=== PATIENT | female | born 1995 | race Two or more races ===

== ENCOUNTER 2018-11-23 14:44 | Inpatient (IN) | payer MEDICAID ==
[~2018-11-23] VITALS: Ht 154.9 cm; Wt 58.5 kg
[2018-11-23] MEDS ORDERED: NKM (15:03)
[2018-11-23 15:19] VITALS: BP 112/67
--- NOTE | 2018-11-23 15:30 | NUR ---
ED Nurse Note: zuhair booth done blood and urine sent.
[2018-11-23 15:56] LABS: APPEARANCE,URINE CLEAR; BILIRUBIN, URINE NEGATIVE (NEGATIVE); COLOR,URINE PALE YELLOW; GLUCOSE, URINE (UA) NEGATIVE (NEGATIVE); KETONES,URINE 1+ (NEGATIVE); LEUKOCYTE ESTERASE ,URINE 3+ (NEGATIVE); NITRITE,URINE POSITIVE (NEGATIVE); PH,URINE 5 (4.5-8.0); PROTEIN,URINE 2+ (NEGATIVE); UROBILINOGEN,URINE NORMAL MG/DL (0.0-1.0)
[2018-11-23 16:03] LABS: HEMATOCRIT 34.4 % (37.0-47.0); HEMOGLOBIN 12.1 G/DL (12.0-16.0); MEAN CORPUSCULAR VOLUME 91 FL (80-99); PLATELET COUNT 320 K/UL (150-450); RED BLOOD COUNT 3.79 M/UL (4.20-5.40); RED CELL DISTRIBUTION WIDTH 11.1 % (11.6-14.8); WHITE BLOOD COUNT 15.7 K/UL (4.8-10.8)
[2018-11-23 16:07] LABS: ANION GAP 8 mmol/L (5-15); BLOOD UREA NITROGEN 11 mg/dL (7-18); CALCIUM 9.4 MG/DL (8.5-10.1); CARBON DIOXIDE 26 MMOL/L (21-32); CHLORIDE 101 MMOL/L (98-107); CREATININE 0.8 MG/DL (0.55-1.30); POTASSIUM 3.6 MMOL/L (3.5-5.1); SODIUM 135 MMOL/L (136-145)
[2018-11-23 16:12] LABS: ALANINE AMINOTRANSFERASE 16 U/L (12-78); ALBUMIN 3.8 G/DL (3.4-5.0); ALKALINE PHOSPHATASE 64 U/L (46-116); ASPARTATE AMINO TRANSFERASE 15 U/L (15-37); BILIRUBIN,TOTAL 0.2 MG/DL (0.2-1.0)
[2018-11-23] MEDS ORDERED: Isovue-300 100ml vial INJ PRN (16:15)
--- NOTE | 2018-11-23 16:40 | NUR ---
ED Nurse Note: med well tolerated will monitor.
--- NOTE | 2018-11-23 16:51 | NUR ---
ED Nurse Note: pt back from imaging
--- NOTE | 2018-11-23 17:10 | Diagnostic Imaging Report ---
Indication: Abdominal pain Technique: Continuous helical transaxial imaging of the abdomen and pelvis was obtained from the lung bases to the pubic symphysis during intravenous contrast administration. Coronal 2-D reformats were also obtained. Study obtained in a Siemens sensation [address] Automatic Exposure Control was utilized. Total Dose length Product (DLP): 808.[address] Dose Index Volume (CTDIvol): 14.79 mGy Comparison: None Findings: Although there is no hydronephrosis per se there is the suggestion of mild enhancement of the kimble of both ureters especially on the left. In addition, there is enhancement and mild thickening of the wall the urinary bladder. Findings consistent with cystitis and may reflect acute or chronic urinary tract infection (pyelitis/ureteritis). The kidneys enhance normally bilaterally without evidence of bacterial nephritis or abscess. The lung bases are clear. The liver and spleen, pancreas, kidneys appear normal. There is no free fluid. The appendix is normal. Bowel gas pattern is nonobstructive. There is a small amount of free fluid within the pelvis. Uterus and both ovaries are noted. Impression: Suspect cystitis and pyelitis with possible pyelonephritis. Correlate clinically, urinalysis etc. No abscess. Negative exam otherwise. The CT scanner at [facility] is accredited by the [place] [employer] and the scans are performed using dose optimization techniques as appropriate to a performed exam including Automatic Exposure control.
[2018-11-23] MEDS ORDERED: Lidocaine 1% MPF 10mg/ml 5ml INJ ONE (17:15)
[2018-11-23] MEDS ORDERED: Ketorolac 30mg Inj IV ONE (17:30)
--- NOTE | 2018-11-23 17:50 | Emergency Room Report ---
History of Present Illness General Chief Complaint: Fever Source: Patient (Genevieve Szymanski) Present Illness HPI 23-year-old female with no significant past medical history here complaining of 2 days of bilateral flank pain, urinary frequency, and fever. Patient also reports chills as well as generalized body aches. Denies any URI symptoms. Denies diarrhea, chest pain, palpitation, shortness of breath, hematuria. Patient reports that her last menstrual. Was 2 weeks ago and has regular menses. Patient has not taken medication other than Tylenol for her symptoms. Patient is rating the pain 5 out of 10 in bilateral flank radiating to the pubic area. Denies nausea vomiting. Denies recent travel and no other associated symptoms. Denies vaginal discharge. (Genevieve Szymanski) Allergies: Coded Allergies: No Known Allergies (Unverified , 11/23/18) Patient History Past Medical History: see triage record Past Surgical History: unable to obtain Pertinent Family History: none Last Menstrual Period: october Now: No Immunizations: UTD Reviewed Nursing Documentation: PMH: Agreed; PSxH: Agreed (Genevieve Szymanski) Nursing Documentation-PMH Past Medical History: No Stated History (Genevieve Szymanski) Review of Systems All Other Systems: negative except mentioned in HPI (Genevieve Szymanski) Physical Exam Vital Signs Date Time Temp Pulse Resp B/P (MAP) Pulse Ox O2 Delivery O2 Flow Rate FiO2 11/23/18 14:58 102.2 128 16 112/67 (82) 94 Room Air Sp02 EP Interpretation: abnormal - Fever 102 General Appearance: alert, GCS 15, non-toxic, mild distress Head: normocephalic, atraumatic Eyes: bilateral eye normal inspection, bilateral eye PERRL ENT: hearing grossly normal, normal pharynx, no angioedema, normal voice Neck: full range of motion, supple/symm/no masses Respiratory: chest non-tender, lungs clear, normal breath sounds, speaking full sentences Cardiovascular #1: regular rate, rhythm, no edema Gastrointestinal: normal bowel sounds, non tender, soft, no mass, no organomegaly, no peritonitis, no bruit, no guarding, no pulsatile mass, other - Negative McBurney's and Rovsing's Genitourinary: no CVA tenderness Musculoskeletal: back normal, gait/station normal, normal range of motion, non- tender, calf tenderness Neurologic: alert, oriented x3, responsive, motor strength/tone normal, sensory intact, speech normal Psychiatric: judgement/insight normal, memory normal, mood/affect normal, no suicidal/homicidal ideation Skin: no rash Lymphatic: no adenopathy (Genevieve Szymanski) Medical Decision Making PA Attestation All my diagnosis and treatment plans were reviewed ad discussed with my supervising physician Dr. Dietrich (Genevieve Szymanski) Diagnostic Impression: Primary Impression: Pyelonephritis ER Course 23-year-old female with no significant past medical history here complaining of 2 days of bilateral flank pain, urinary frequency, and fever. Patient also reports chills as well as generalized body aches. Denies any URI symptoms. Denies diarrhea, chest pain, palpitation, shortness of breath, hematuria. Patient reports that her last menstrual. Was 2 weeks ago and has regular menses. Patient has not taken medication other than Tylenol for her symptoms. Patient is rating the pain 5 out of 10 in bilateral flank radiating to the pubic area. Denies nausea vomiting. Denies recent travel and no other associated symptoms. Denies vaginal discharge. Ddx considered but are not limited to: UTI, pyelonephritis, urinary incontinence , prolapsed bladder Vital signs: are WNL, pt. is febrile H&PE are most consistent with: Pyelonephritis ORDERS: UA, CBC, CMP, PT, PTT, type and screen ED INTERVENTIONS: Rocephin 1 g IV, NS bolus Patient was admitted with diagnosis of pyelonephritis to Dr. Oscar under supervision of : Kaur pt stable at time of admission White blood count of 15,000, leukocytes and white blood cells in urine noted. (Genevieve Szymanski) ER Course I reviewed case with PA and reviewed findings including labs, imaging results. I agree that patient will require further evaluation and admission. Care is endorsed to admitting physician Dr Oscar (Timothy Dietrich MD) EKG Diagnostic Results Rate: tachycardiac ST Segments: no acute changes Other Impression no acute ST changes (Genevieve Szymanski) Chest X-Ray Diagnostic Results Chest X-Ray Diagnostic Results : Chest X-Ray Ordered: Yes # of Views/Limited/Complete: 1 View Indication: Other EP Interpretation: Yes PA Xray: Interpretation reviewed, by supervising MD, and agrees with findings. Interpretation: no consolidation, no effusion, no pneumothorax Impression: No acute disease Electronically Signed by: Genevieve Gr PA-C (Genevieve Szymanski) CT/MRI/US Diagnostic Results CT/MRI/US Diagnostic Results : Imaging Test Ordered: CT abdomen pelvis with contrast Impression Pyelonephritis (Genevieve Szymanski) Last Vital Signs Date Time Temp Pulse Resp B/P (MAP) Pulse Ox O2 Delivery O2 Flow Rate FiO2 11/23/18 16:50 100.4 11/23/18 16:32 103 16 Room Air 11/23/18 15:19 112/67 94 (Genevieve Szymanski) Status: improved (Timothy Dietrich MD) Disposition: ADMITTED INPATIENT Condition: Serious Referrals: NOT CHOSEN IPA/,REFERRING (PCP) Genevieve Szymanski Nov 23, 2018 17:50 Timothy Dietrich MD Nov 23, 2018 18:47
--- NOTE | 2018-11-23 18:01 | NUR ---
ED Nurse Note: Zulma pt.
--- NOTE | 2018-11-23 18:19 | NUR ---
ED Nurse Note: pt moved to bed 2 per erpa verbal request.
[2018-11-23 18:21] VITALS: BP 116/70
[2018-11-23 18:33] LABS: INR 0.9 (0.9-1.1)
--- NOTE | 2018-11-23 19:02 | Infectious Diseases Prog Note ---
Assessment/Plan Problems: (1) Acute pyelonephritis Assessment & Plan: will send blood culture and start cefepime empirically , pending urine culture (2) Sepsis Assessment & Plan: due to the above with fever and leukocytosis, will send blood culture x2 and start cefepime empirically (3) Fever Assessment & Plan: due to the above, continue antibiotics and tylenol as needed (4) Abdominal pain Assessment & Plan: due to the above, continue pain management as per primary Subjective Allergies: Coded Allergies: No Known Allergies (Unverified , 11/23/18) Objective Vital Signs Last 24 Hour Vital Signs Date Time Temp Pulse Resp B/P (MAP) Pulse Ox O2 Delivery O2 Flow Rate FiO2 11/23/18 18:21 101.4 86 20 116/70 100 Room Air 11/23/18 18:00 101.4 11/23/18 16:50 100.4 11/23/18 16:32 103 16 Room Air 11/23/18 15:19 102.2 16 112/67 94 Room Air 11/23/18 14:58 102.2 128 16 112/67 (82) 94 Room Air Height (Feet): 5 Height (Inches): 1.00 Weight (Pounds): 129 Laboratory Tests Test 11/23/18 15:10 11/23/18 15:30 11/23/18 18:09 Urine Color Pale yellow Urine Appearance Clear Urine pH 5 (4.5-8.0) Urine Specific [place] 1.015 (1.005-1.035) Urine Protein 2+ (NEGATIVE) H Urine Glucose (UA) Negative (NEGATIVE) Urine Ketones 1+ (NEGATIVE) H Urine Blood 4+ (NEGATIVE) H Urine Nitrite Positive (NEGATIVE) H Urine Bilirubin Negative (NEGATIVE) Urine Urobilinogen Normal MG/DL (0.0-1.0) Urine Leukocyte Esterase 3+ (NEGATIVE) H Urine RBC 5-10 /HPF (0 - 2) H Urine WBC 10-15 /HPF (0 - 2) H Urine Squamous Epithelial Cells Few /LPF (NONE/OCC) Urine Bacteria Moderate /HPF (NONE) H Urine HCG, Qualitative Negative (NEGATIVE) White Blood Count 15.7 K/UL (4.8-10.8) H Red Blood Count 3.79 M/UL (4.20-5.40) L Hemoglobin 12.1 G/DL (12.0-16.0) Hematocrit 34.4 % (37.0-47.0) L Mean Corpuscular Volume 91 FL (80-99) Mean Corpuscular Hemoglobin 31.9 PG (27.0-31.0) H Mean Corpuscular Hemoglobin Concent 35.1 G/DL (32.0-36.0) Red Cell Distribution Width 11.1 % (11.6-14.8) L Platelet Count 320 K/UL (150-450) Mean Platelet Volume 5.7 FL (6.5-10.1) L Neutrophils (%) (Auto) % (45.0-75.0) Lymphocytes (%) (Auto) % (20.0-45.0) Monocytes (%) (Auto) % (1.0-10.0) Eosinophils (%) (Auto) % (0.0-3.0) Basophils (%) (Auto) % (0.0-2.0) Differential Total Cells Counted 100 Neutrophils % (Manual) 87 % (45-75) H Lymphocytes % (Manual) 8 % (20-45) L Monocytes % (Manual) 4 % (1-10) Eosinophils % (Manual) 0 % (0-3) Basophils % (Manual) 0 % (0-2) Band Neutrophils 1 % (0-8) Platelet Estimate Adequate Platelet Morphology Normal Red Blood Cell Morphology Normal Sodium Level 135 MMOL/L (136-145) L Potassium Level 3.6 MMOL/L (3.5-5.1) Chloride Level 101 MMOL/L (98-107) Carbon Dioxide Level 26 MMOL/L (21-32) Anion Gap 8 mmol/L (5-15) Blood Urea Nitrogen 11 mg/dL (7-18) Creatinine 0.8 MG/DL (0.55-1.30) Estimat Glomerular Filtration Rate > 60 mL/min (>60) Glucose Level 126 MG/DL (74-106) H Calcium Level 9.4 MG/DL (8.5-10.1) Total Bilirubin 0.2 MG/DL (0.2-1.0) Aspartate Amino Transf (AST/SGOT) 15 U/L (15-37) Alanine Aminotransferase (ALT/SGPT) 16 U/L (12-78) Alkaline Phosphatase 64 U/L (46-116) Total Protein 7.7 G/DL (6.4-8.2) Albumin 3.8 G/DL (3.4-5.0) Globulin 3.9 g/dL Albumin/Globulin Ratio 1.0 (1.0-2.7) Prothrombin Time 10.0 SEC (9.30-11.50) Prothromb Time International Ratio 0.9 (0.9-1.1) Activated Partial Thromboplast Time 30 SEC (23-33) Current Medications Medications (Trade) Dose Ordered Sig/Mackenzie Route PRN Reason Start Time Stop Time Status Last Admin Dose Admin Iopamidol (Isovue-300 100ml) 100 ml NOW PRN INJ Radiology Procedure 11/23/18 16:15 11/25/18 16:14 Sodium Chloride 500 ml @ 999 mls/hr Q31M ONCE IV 11/23/18 19:00 11/23/18 19:30 Sodium Chloride 1,000 ml @ 999 mls/hr Q1H1M ONCE IV 11/23/18 19:00 11/23/18 20:00 11/23/18 18:58 Jordan Aggarwal M.D. Nov 23, 2018 19:02
[2018-11-23 19:30] VITALS: BP 110/72
--- NOTE | 2018-11-23 19:30 | NUR ---
ER Nurse Note: Report given to LYNNETTE Guadarrama in [place] for continuity of care. Pt a&ox4, VSS, RA, no signs of distress. Pt ambulatory. IV LT AC; patent and infusing NS. Left with all belongings.
--- NOTE | 2018-11-23 20:20 | NUR ---
NURSE NOTES: Patient is awake, alert, and verbally responsive. Able to make needs known. IV site is noted. Skin is warm and dry to touch. Abdomen is soft, slight pain. Lower back pain noted. Dr. Aggarwal made rounds, is aware. Kept clean and comfortable. Provided safe environment. Oriented patient to the room, vital signs, and notifications. Call light is at bedside. WIll continue plan of care.
--- NOTE | 2018-11-23 20:30 | NUR ---
NURSE NOTES: Called Dr. Oscar for admission orders. awaiting call back.
[2018-11-23] MEDS: Cefepime HCl 2 GM in D5W 55 ML IVPB SCH (22:15)
[2018-11-23] MEDS ORDERED: Ketorolac 30mg Inj IV PRN (22:30)
[2018-11-23] MEDS ORDERED: Morphine Sulfate 4mg/ml Inj (IV USE ONLY) IVP PRN (22:30)
[2018-11-23] MEDS: D5NS 1,000 ML IV SCH (22:52)
--- NOTE | 2018-11-23 23:15 | Consultation ---
DATE OF CONSULTATION: 11/23/2018 UROLOGY CONSULTATION CONSULTING PHYSICIAN: Hi Matamoros M.D. ATTENDING/REFERRING PHYSICIAN: Anaya Oscar M.D. CHIEF COMPLAINT/HISTORY OF PRESENT ILLNESS: I was asked by Dr. Oscar to evaluate this pleasant 23-year-old regarding a history of urinary tract infection and left-sided pyelonephritis secondary to the same. Briefly, the patient has no significant medical history or issue. She presents to the hospital with history of two days of abdominal pain associated with urinary frequency. She does not have any history of high-grade fevers or chills. She did notice that her urine was coming out slowly and had some discomfort with urination. Given the above, she was brought here. Workup revealed evidence of urinary tract infection. Given the above, I was asked to evaluate the patient. PAST MEDICAL HISTORY: Essentially unremarkable. PAST SURGICAL HISTORY: None. MEDICATIONS: Please see the chart for current medications administration details. Briefly, the patient has been started on cefepime for antibiotic coverage. ALLERGIES: No known drug allergies. SOCIAL HISTORY: Unremarkable for tobacco, alcohol or drug use. FAMILY HISTORY: Noncontributory. REVIEW OF SYSTEMS: A 14-system review of systems is essentially unremarkable outside of what is described above. PHYSICAL EXAMINATION: GENERAL: The patient is a young female, awake, alert, and oriented x4, very pleasant, in no obvious distress. HEENT: NC/AT. EOMI. NECK: Supple. Oropharynx clear. CHEST: Within normal limits. ABDOMEN: Soft. Mild epigastric tenderness. No rebound or guarding. EXTREMITIES: Warm and well perfused. No cyanosis, clubbing, or edema. BACK: Left CVA tenderness to percussion. NEUROLOGIC: Grossly nonfocal. LABORATORY AND DIAGNOSTIC DATA: White blood cell count 15.7, hematocrit 34.4, and platelets 320,000. PT, PTT, and INR within normal limits. Sodium 135, potassium 3.6, chloride 101, bicarbonate 26, BUN 11, creatinine 0.8, glucose 126, calcium 9.4. LFTs within normal limits. Urinalysis - specific gravity 1.015, pH 5.0. Dip test is notable for 2+ protein, 1+ , 4+ blood, positive nitrites, and 3+ leukocyte esterase. Microanalysis - 5-10 red and 10-15 white blood cells per high-power field and moderate bacteria seen. Urine is negative. Urine culture is pending. Diagnostic imaging - CT scan of the abdomen and pelvis reveals cystitis and pyelitis with possible pyelonephritis. There is no evidence of abscess and exam is otherwise negative. ASSESSMENT AND PLAN: In summary, the patient is a 23-year-old female with history of urinary tract infection and left pyelonephritis. Physical exam reveals left CVA tenderness and epigastric tenderness. Laboratory data is notable for an elevated white blood cell count and evidence of urinary tract infection. Urine culture is pending. Diagnostic imaging with CT scan does not reveal anything outside of the above. I discussed these findings today with the patient at bedside. I agree that cefepime is good antibiotic coverage to initiate empirically for the same. We will adjust antibiotic as urine culture results warrant. I will leave this at the discretion of Dr. Aggarawl. Once the patient's white blood cell count has returned to normal and her symptoms are better controlled, she can be discharged home on oral antibiotics to complete 10 to 14 days of total therapy. Thank you for allowing me to participate in the care of this nice lady. Please do not hesitate to contact me for any questions that you may further have regarding her care. I will see her with you as needed. Hi Matamoros M.D. DR: KATHLEEN JOB#: [id number] CC:
[2018-11-23 23:51] VITALS: BP 94/60
[2018-11-24 04:00] VITALS: BP 112/66
[2018-11-24 07:14] LABS: HEMATOCRIT 36.6 % (37.0-47.0); HEMOGLOBIN 12.4 G/DL (12.0-16.0); MEAN CORPUSCULAR VOLUME 94 FL (80-99); PLATELET COUNT 271 K/UL (150-450); RED BLOOD COUNT 3.88 M/UL (4.20-5.40); RED CELL DISTRIBUTION WIDTH 11.9 % (11.6-14.8); WHITE BLOOD COUNT 20.2 K/UL (4.8-10.8)
--- NOTE | 2018-11-24 07:14 | NUR ---
HAND-OFF: Report given to Brent Hess.
[2018-11-24 07:28] LABS: ALANINE AMINOTRANSFERASE 18 U/L (12-78); ALBUMIN 3.2 G/DL (3.4-5.0); ALBUMIN/GLOBULIN RATIO 0.8 (1.0-2.7); ALKALINE PHOSPHATASE 56 U/L (46-116); ANION GAP 9 mmol/L (5-15); ASPARTATE AMINO TRANSFERASE 21 U/L (15-37); BILIRUBIN,TOTAL 0.3 MG/DL (0.2-1.0); BLOOD UREA NITROGEN 7 mg/dL (7-18); CALCIUM 8.8 MG/DL (8.5-10.1); CARBON DIOXIDE 23 MMOL/L (21-32); CHLORIDE 105 MMOL/L (98-107); CHOLESTEROL 114 MG/DL (< 200); CREATININE 0.7 MG/DL (0.55-1.30); HDL CHOLESTEROL 56 MG/DL (40-60); POTASSIUM 3.7 MMOL/L (3.5-5.1); SODIUM 137 MMOL/L (136-145); TRIGLYCERIDES 93 MG/DL (30-150)
[2018-11-24 08:00] VITALS: BP 105/59
--- NOTE | 2018-11-24 08:21 | NUR ---
pt in bed awake, boyfriend is at bedside. Pt is NPO and will be having US ab today. Pt AOx4. Call light within reach. Bed is locked and in lowest position. Will continue to follow plan of care.
--- NOTE | 2018-11-24 09:07 | Diagnostic Imaging Report ---
Indication: Chest pain and fever Technique: One view of the chest Comparison: none Findings: Lungs and pleural spaces are clear. Heart size is normal. Impression: No acute process
[2018-11-24] MEDS: Cefepime HCl 2 GM in D5W 55 ML IVPB SCH ×2 (09:08→20:19)
[2018-11-24] MEDS: Enoxaparin 40mg Inj SUBQ SCH (09:09)
--- NOTE | 2018-11-24 10:23 | NUR ---
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 T: 102.2F SI: Pyelonephritis VS: BP: 112/67 HR: 128 RR 16 02 Sat 94% (RA) T: 102.2 NT: Hct 34.4 WBC 15.7 RBC 3.79 UR Protein 2+ UR Ketones 1+ UR Nitrite Positive UR RBC 5-10 UR WBC 10-15 UC Bacteria Moderate Glucose Random 126 CT Abdomen pelvis w/ contrast: Suspect cystitis and pyelitis with possible pyelonephritis. Correlate clinically, urinalysis etc. No abscess. Negative exam otherwise. CXR: negative IS: Tylenol 650mg Oral Isovue-300 Inj Rocephin 1gm IM Lidocaine 3.6ml INJ NS 500ml IV Toradol 30mg IV Admitted to [facility] status DCP: Pending Hospital Stay
--- NOTE | 2018-11-24 11:27 | Infectious Diseases Prog Note ---
Assessment/Plan Problems: (1) Acute pyelonephritis Assessment & Plan: await blood culture and continue cefepime empirically , pending urine culture (2) Sepsis Assessment & Plan: due to the above with fever and leukocytosis, monitor blood culture x2 and continue cefepime empirically (3) Fever Assessment & Plan: due to the above, continue antibiotics and tylenol as needed (4) Abdominal pain Assessment & Plan: due to the above, continue pain management as per primary Subjective Constitutional: Reports: fever HEENT: Reports: no symptoms Respiratory: Reports: no symptoms Breasts: Reports: no symptoms Cardiovascular: Reports: no symptoms Gastrointestinal/Abdominal: Reports: bloating Genitourinary: Reports: no symptoms Neurologic: Reports: no symptoms Psychiatric: Reports: no symptoms Skin: Reports: no symptoms Endocrine: Reports: no symptoms Hematologic: Reports: no symptoms Musculoskeletal: Reports: no symptoms Allergies: Coded Allergies: No Known Allergies (Unverified , 11/23/18) Objective Vital Signs Last 24 Hour Vital Signs Date Time Temp Pulse Resp B/P (MAP) Pulse Ox O2 Delivery O2 Flow Rate FiO2 11/24/18 08:00 98.6 72 17 105/59 (74) 97 11/24/18 05:09 101.2 11/24/18 04:00 102.0 109 16 112/66 (81) 98 11/23/18 23:51 96.8 100 18 94/60 (71) 96 11/23/18 22:53 Room Air 11/23/18 19:35 99.1 90 16 110/72 100 Room Air 11/23/18 19:30 99.1 90 16 110/72 100 Room Air 11/23/18 18:21 101.4 86 20 116/70 100 Room Air 11/23/18 18:00 101.4 11/23/18 16:50 100.4 11/23/18 16:32 103 16 Room Air 11/23/18 15:19 102.2 16 112/67 94 Room Air 11/23/18 14:58 102.2 128 16 112/67 (82) 94 Room Air Height (Feet): 5 Height (Inches): 1.00 Weight (Pounds): 129 General Appearance: WD/WN, no acute distress HEENT: normocephalic, atraumatic, anicteric, mucous membranes moist, PERRL Respiratory/Chest: chest wall non-tender, lungs clear, normal breath sounds, no respiratory distress, no accessory muscle use Cardiovascular: normal peripheral pulses, normal rate, regular rhythm, no gallop/murmur, no JVD Abdomen: normal bowel sounds, no organomegaly, non distended, no mass, no scars , tender Extremities: no cyanosis, no clubbing Skin: no rash, no lesions, no ulcers Neurologic/Psychiatric: glory hole tender II-XII grossly normal, no motor/sensory deficits, alert, oriented x 3, responsive Lymphatic: no neck adenopathy, no groin adenopathy Musculoskeletal: normal muscle bulk, no effusion Microbiology Date/Time Source Procedure Growth Status 11/23/18 15:10 Urine,Clean Catch Urine Culture - Preliminary Gram Negative Ramiro Resulted Laboratory Tests Test 11/23/18 15:10 11/23/18 15:30 11/23/18 18:09 11/24/18 06:24 Urine Color Pale yellow Urine Appearance Clear Urine pH 5 (4.5-8.0) Urine Specific [place] 1.015 (1.005-1.035) Urine Protein 2+ (NEGATIVE) H Urine Glucose (UA) Negative (NEGATIVE) Urine Ketones 1+ (NEGATIVE) H Urine Blood 4+ (NEGATIVE) H Urine Nitrite Positive (NEGATIVE) H Urine Bilirubin Negative (NEGATIVE) Urine Urobilinogen Normal MG/DL (0.0-1.0) Urine Leukocyte Esterase 3+ (NEGATIVE) H Urine RBC 5-10 /HPF (0 - 2) H Urine WBC 10-15 /HPF (0 - 2) H Urine Squamous Epithelial Cells Few /LPF (NONE/OCC) Urine Bacteria Moderate /HPF (NONE) H Urine HCG, Qualitative Negative (NEGATIVE) White Blood Count 15.7 K/UL (4.8-10.8) H 20.2 K/UL (4.8-10.8) H Red Blood Count 3.79 M/UL (4.20-5.40) L 3.88 M/UL (4.20-5.40) L Hemoglobin 12.1 G/DL (12.0-16.0) 12.4 G/DL (12.0-16.0) Hematocrit 34.4 % (37.0-47.0) L 36.6 % (37.0-47.0) L Mean Corpuscular Volume 91 FL (80-99) 94 FL (80-99) Mean Corpuscular Hemoglobin 31.9 PG (27.0-31.0) H 32.0 PG (27.0-31.0) H Mean Corpuscular Hemoglobin Concent 35.1 G/DL (32.0-36.0) 33.8 G/DL (32.0-36.0) Red Cell Distribution Width 11.1 % (11.6-14.8) L 11.9 % (11.6-14.8) Platelet Count 320 K/UL (150-450) 271 K/UL (150-450) Mean Platelet Volume 5.7 FL (6.5-10.1) L 5.8 FL (6.5-10.1) L Neutrophils (%) (Auto) % (45.0-75.0) % (45.0-75.0) Lymphocytes (%) (Auto) % (20.0-45.0) % (20.0-45.0) Monocytes (%) (Auto) % (1.0-10.0) % (1.0-10.0) Eosinophils (%) (Auto) % (0.0-3.0) % (0.0-3.0) Basophils (%) (Auto) % (0.0-2.0) % (0.0-2.0) Differential Total Cells Counted 100 100 Neutrophils % (Manual) 87 % (45-75) H 84 % (45-75) H Lymphocytes % (Manual) 8 % (20-45) L 9 % (20-45) L Monocytes % (Manual) 4 % (1-10) 6 % (1-10) Eosinophils % (Manual) 0 % (0-3) 0 % (0-3) Basophils % (Manual) 0 % (0-2) 0 % (0-2) Band Neutrophils 1 % (0-8) 1 % (0-8) Platelet Estimate Adequate Adequate Platelet Morphology Normal Normal Red Blood Cell Morphology Normal Normal Sodium Level 135 MMOL/L (136-145) L 137 MMOL/L (136-145) Potassium Level 3.6 MMOL/L (3.5-5.1) 3.7 MMOL/L (3.5-5.1) Chloride Level 101 MMOL/L (98-107) 105 MMOL/L (98-107) Carbon Dioxide Level 26 MMOL/L (21-32) 23 MMOL/L (21-32) Anion Gap 8 mmol/L (5-15) 9 mmol/L (5-15) Blood Urea Nitrogen 11 mg/dL (7-18) 7 mg/dL (7-18) Creatinine 0.8 MG/DL (0.55-1.30) 0.7 MG/DL (0.55-1.30) Estimat Glomerular Filtration Rate > 60 mL/min (>60) > 60 mL/min (>60) Glucose Level 126 MG/DL (74-106) H 121 MG/DL (74-106) H Calcium Level 9.4 MG/DL (8.5-10.1) 8.8 MG/DL (8.5-10.1) Total Bilirubin 0.2 MG/DL (0.2-1.0) 0.3 MG/DL (0.2-1.0) Aspartate Amino Transf (AST/SGOT) 15 U/L (15-37) 21 U/L (15-37) Alanine Aminotransferase (ALT/SGPT) 16 U/L (12-78) 18 U/L (12-78) Alkaline Phosphatase 64 U/L (46-116) 56 U/L (46-116) Total Protein 7.7 G/DL (6.4-8.2) 7.3 G/DL (6.4-8.2) Albumin 3.8 G/DL (3.4-5.0) 3.2 G/DL (3.4-5.0) L Globulin 3.9 g/dL 4.1 g/dL Albumin/Globulin Ratio 1.0 (1.0-2.7) 0.8 (1.0-2.7) L Prothrombin Time 10.0 SEC (9.30-11.50) Prothromb Time International Ratio 0.9 (0.9-1.1) Activated Partial Thromboplast Time 30 SEC (23-33) Hemoglobin A1c 5.5 % (4.3-6.0) Triglycerides Level 93 MG/DL (30-150) Cholesterol Level 114 MG/DL (< 200) LDL Cholesterol 47 mg/dL (<100) HDL Cholesterol 56 MG/DL (40-60) Cholesterol/HDL Ratio 2.0 (3.3-4.4) L Thyroid Stimulating Hormone (TSH) 0.713 uiU/mL (0.358-3.740) Current Medications Medications (Trade) Dose Ordered Sig/Mackenzie Route PRN Reason Start Time Stop Time Status Last Admin Dose Admin Acetaminophen (Tylenol) 650 mg Q4H PRN ORAL Mild Pain/Temp > 100.5 11/23/18 22:30 12/23/18 22:29 11/24/18 04:39 Cefepime HCl 2 gm/ Dextrose 55 ml @ 110 mls/hr EVERY 12 HOURS IVPB 11/23/18 21:00 11/30/18 20:59 11/24/18 09:08 Dextrose/Sodium Chloride 1,000 ml @ 70 mls/hr [id number] IV 11/23/18 22:30 12/23/18 22:29 11/23/18 22:52 Enoxaparin Sodium (Lovenox) 40 mg DAILY SUBQ 11/24/18 09:00 12/24/18 08:59 11/24/18 09:09 Famotidine (Pepcid I.v.) 20 mg BID IVP 11/23/18 23:00 12/23/18 22:59 11/24/18 09:08 Iopamidol (Isovue-300 100ml) 100 ml NOW PRN INJ Radiology Procedure 11/23/18 16:15 11/25/18 16:14 Ketorolac Tromethamine (Toradol 30mg) 30 mg Q12HR PRN IV Moderate Pain (Pain Scale 4-6) 11/23/18 22:30 11/28/18 22:29 Morphine Sulfate (Morphine Sulfate) 3 mg Q4H PRN IVP Severe Pain (Pain Scale 7-10) 11/23/18 22:30 11/30/18 22:29 Jordan Aggarwal M.D. Nov 24, 2018 11:27
[2018-11-24 12:00] VITALS: BP 110/67
[2018-11-24] MEDS: D5NS 1,000 ML IV SCH (13:07)
[2018-11-24 16:00] VITALS: BP 101/61
--- NOTE | 2018-11-24 17:06 | Diagnostic Imaging Report ---
Indication: Bilateral flank pain, history of urinary tract infection and left pyelonephritis, urinary frequency Technique: Paredes-scale and duplex images of the upper abdomen were obtained Comparison: No comparison sonograms. Reference is made to CT abdomen and pelvis dated 11/23/2018 Findings: Gallbladder is unremarkable, without stones, wall thickening, nor pericholecystic fluid. Sonographic Quezada's sign is negative. Common bile duct measures 3 mm in diameter. No intrahepatic biliary ductal dilatation. Liver demonstrates normal echogenicity, no focal abnormality. Portal vein and hepatic veins are patent. Pancreas is unremarkable. Spleen is unremarkable. Left kidney measures 10.3 cm in length. Right kidney measures 9.6 cm length. Both kidneys demonstrate normal echogenicity. There is no hydronephrosis on the right. There is mild fullness to the left renal collecting system. No focal abnormality . The bladder demonstrates posterior wall thickening. Non-aneurysmal abdominal aorta . Impression: Mild fullness of left renal collecting system. This is a nonspecific finding, but can be seen in pyelitis, which was suggested on report of prior CT scan Posterior bladder wall thickening, also described on recent CT, may indicate cystitis changes. Negative for gallstones or dilated ducts
--- NOTE | 2018-11-24 18:00 | History and Physical Report ---
DATE OF ADMISSION: 11/23/2018 SOURCE OF INFORMATION: Patient and EMR. HISTORY OF PRESENT ILLNESS: The patient is a 23-year-old female with unremarkable history. The patient is complaining of fever and diffuse pain in the body. At the time of evaluation, the patient denies chest pain or shortness of breath. No nausea. No vomitus. No diarrhea. PAST MEDICAL HISTORY: Unremarkable. ALLERGIES: NKDA. FAMILY HISTORY: Reviewed and noncontributory. HOME MEDICATIONS: None. PHYSICAL EXAMINATION: VITAL SIGNS: Blood pressure , pulse rate , respiratory rate 18. HEAD AND NECK: Atraumatic and normocephalic. CHEST: Clear to auscultation. HEART: S1, S2. Regular rate and rhythm. ABDOMEN: Soft. No organomegaly. MUSCULOSKELETAL: No gross focal motor deficit. Positive for costovertebral angle tenderness. LABORATORY DATA: Labs dated 11/23/2018, WBC 15.7, hemoglobin 12.1, and platelets of 320,000. Sodium 135, potassium 3.6. Glucose of 120. Urine is positive for 15 wbc's, 4+ blood, and moderate bacteriuria. CT scan of abdomen and pelvis dated 11/23/2018, suspicious of pyelonephritis. Chest x-ray, dated 11/24/2018, is unremarkable. ASSESSMENT: 1. Left-sided acute pyelonephritis. 2. Hyponatremia. 3. Abnormal blood glucose. 4. Sepsis. 5. GI and DVT prophylaxes. PLAN OF CARE: Agree with the current empiric antibiotic treatments, pending cultures. Nephrology and Infectious Disease have been notified and consulted. Continue with the pain management. Anaya Oscar M.D. DR: MISBAH JOB#: [id number] CC:
--- NOTE | 2018-11-24 18:30 | NUR ---
NURSE NOTES: Dc. Moore is aware of high WBC left him a voice mail
--- NOTE | 2018-11-24 19:30 | NUR ---
OBTAINED REPORT FROM KEN CHURCH. PER REPORT, PT NO LONGER NPO AND ON REGULAR DIET. PT RESTING IN BED.
[2018-11-24 20:00] VITALS: BP 129/70
--- NOTE | 2018-11-24 20:08 | NUR ---
HAND-OFF: Report given to Nica/LYNNETTE. pt in stable condition monitor fever.
--- NOTE | 2018-11-25 00:45 | Consultation ---
DATE OF CONSULTATION: 11/24/2018 INFECTIOUS DISEASE CONSULTATION CONSULTING PHYSICIAN: Jordna Aggarwal M.D. REFERRING PHYSICIAN: Anaya Oscar M.D. REASON FOR CONSULTATION: Sepsis and acute pyelonephritis. Recommendation for antimicrobial treatment. HISTORY OF PRESENT ILLNESS: The patient is a 23-year-old female with past medical history of urinary tract infection during , presented to [facility] Emergency Room with two days of bilateral flank pain, abdominal pain, increased urine frequency and fever associated with chills and generalized body ache. The patient had extensive workup in the emergency room revealed leukocytosis concerning for sepsis with fever of 102.2. CT scan of the abdomen and pelvis confirmed the finding of pyelonephritis, mainly on the left side. So, she was given ceftriaxone and Infectious Disease consult was requested for antibiotics treatment and further management. REVIEW OF SYSTEMS: A 14-point of system reviewed were all negative apart from the one I mentioned above in my History and Physical. PAST MEDICAL HISTORY: Significant for UTI during . PAST SURGICAL HISTORY: Negative. FAMILY HISTORY: Noncontributory. SOCIAL HISTORY: The patient lives with family. She has children. Denies any drugs, tobacco, or alcohol. She is unemployed. ALLERGIES: No known drug allergy. MEDICATIONS: The patient received ceftriaxone x1 dose in the emergency room. For the rest of her medications, please refer to MAR. PHYSICAL EXAMINATION: VITAL SIGNS: Temperature 99.1, pulse 90, respirations 16, and blood pressure 110/72. Saturation 100% on room air. GENERAL: A young female, lying in bed, awake, alert, and oriented x3, not in acute distress. Significant other is at the bedside. HEENT: Normocephalic and atraumatic. Pupils reactive to light equally. Moist oral mucosa. NECK: Supple. CARDIOVASCULAR: Regular rate and rhythm. No murmurs. LUNGS: Clear bilaterally. No wheezing or rhonchi. ABDOMEN: Soft. Tender in the flank area, worse on the left side more than the right. No rebound. No organomegaly. No ascites. EXTREMITIES: No edema or cyanosis. GENITALIA: Normal. No ulceration or lesion. LABORATORY AND DIAGNOSTIC DATA: Labs showed white count of 16.7, hemoglobin 12.1, and platelet count 320,000. BUN of 11, creatinine 0.8. Urinalysis showed +3 leukocyte esterase, wbc's 10 to 15, and moderate amount of bacteria. Microbiology - urine culture and blood culture is pending. Imaging, CT scan of the abdomen and pelvis showed cystitis and pyelitis with possible pyelonephritis. No abscess. ASSESSMENT AND RECOMMENDATION: 1. Acute pyelonephritis. We will send blood culture and start cefepime empiric coverage for now pending her blood culture and urine culture. We will deescalate antibiotics as needed. 2. Sepsis due to the above with fever and leukocytosis. We will send blood culture x2 and start cefepime empiric coverage. 3. Fever due to the above. Continue antibiotics and Tylenol as needed. 4. Abdominal pain. Continue pain management as per primary. Thank you for the consult. ID will continue to follow. Jordan Aggarwal M.D. DR: YAYA JOB#: [id number] CC:
[2018-11-25] MEDS: D5NS 1,000 ML IV SCH ×2 (02:14→10:02)
--- NOTE | 2018-11-25 07:15 | NUR ---
GAVE FULL REPORT TO TIEN CHURCH, PT RESTING IN BED FREE FROM APPARENT DISTRESS.
[2018-11-25 08:00] VITALS: BP 99/73
--- NOTE | 2018-11-25 08:22 | NUR ---
NURSE NOTES: Patient is alert and oriented. No reports of discomfort at the moment. Bed is locked, in lowest position, and call light is within reach. Will continue to monitor.
[2018-11-25] MEDS: Enoxaparin 40mg Inj SUBQ SCH ×2 (09:00→10:05)
[2018-11-25] MEDS: Cefepime HCl 2 GM in D5W 55 ML IVPB SCH (10:02)
--- NOTE | 2018-11-25 10:47 | General Progress Note ---
Assessment/Plan Assessment/Plan: S: I am ok O: seems comforable, denies fever or chills PHYSICAL EXAMINATION:HEAD AND NECK: Atraumatic and normocephalic. CHEST: Clear to auscultation.HEART: S1, S2. Regular rate and rhythm. ABDOMEN: Soft. No organomegaly.MUSCULOSKELETAL: No gross focal motor deficit. Positive for costovertebral angle tenderness. Lab: pending CT scan of abdomen and pelvis dated 11/23/2018, suspicious of pyelonephritis. Chest x-ray, dated 11/24/2018, is unremarkable. ASSESSMENT: 1. Left-sided acute pyelonephritis. 2. Hyponatremia. 3. Abnormal blood glucose. 4. Sepsis. 5. GI and DVT prophylaxes. Plan: current antibiotic Subjective Allergies: Coded Allergies: No Known Allergies (Unverified , 11/23/18) Objective Last 24 Hour Vital Signs Date Time Temp Pulse Resp B/P (MAP) Pulse Ox O2 Delivery O2 Flow Rate FiO2 11/24/18 20:00 98.9 81 18 129/70 (89) 100 11/24/18 20:00 Room Air 11/24/18 16:00 99.6 94 17 101/61 (74) 97 11/24/18 12:00 98.8 74 16 110/67 (81) 98 Intake and Output 11/24/18 11/25/18 19:00 07:00 Intake Total 670 ml 755 ml Balance 670 ml 755 ml Intake Oral 600 ml IV Total 70 ml 755 ml # Voids 1 Height (Feet): 5 Height (Inches): 1.00 Weight (Pounds): 129 Anaya Oscar MD Nov 25, 2018 10:47
[2018-11-25 12:00] VITALS: BP 124/79
--- NOTE | 2018-11-25 14:15 | Infectious Diseases Prog Note ---
Assessment/Plan Problems: (1) Acute pyelonephritis Assessment & Plan: due to E coli , blood culture is still pending , will switch cefepime empirically to oral keflex to finish two weeks total course (2) Sepsis Assessment & Plan: due to the above with fever and leukocytosis, monitor blood culture x2 and continue cefepime empirically (3) Fever Assessment & Plan: due to the above, continue antibiotics and tylenol as needed (4) Abdominal pain Assessment & Plan: due to the above, continue pain management as per primary Subjective Constitutional: Reports: no symptoms HEENT: Reports: no symptoms Respiratory: Reports: no symptoms Breasts: Reports: no symptoms Cardiovascular: Reports: no symptoms Gastrointestinal/Abdominal: Reports: no symptoms Genitourinary: Reports: no symptoms Neurologic: Reports: no symptoms Psychiatric: Reports: no symptoms Skin: Reports: no symptoms Endocrine: Reports: no symptoms Hematologic: Reports: no symptoms Musculoskeletal: Reports: no symptoms Allergies: Coded Allergies: No Known Allergies (Unverified , 11/23/18) Objective Vital Signs Last 24 Hour Vital Signs Date Time Temp Pulse Resp B/P (MAP) Pulse Ox O2 Delivery O2 Flow Rate FiO2 11/25/18 12:00 97.5 65 18 124/79 (94) 94 11/25/18 08:45 Room Air 11/25/18 08:00 98.1 68 18 99/73 (82) 99 11/24/18 20:00 98.9 81 18 129/70 (89) 100 11/24/18 20:00 Room Air 11/24/18 16:00 99.6 94 17 101/61 (74) 97 Height (Feet): 5 Height (Inches): 1.00 Weight (Pounds): 129 General Appearance: WD/WN, no acute distress HEENT: normocephalic, atraumatic, anicteric, mucous membranes moist Respiratory/Chest: chest wall non-tender, lungs clear, normal breath sounds, no respiratory distress, no accessory muscle use Cardiovascular: normal peripheral pulses, normal rate, regular rhythm, no gallop/murmur, no JVD Abdomen: normal bowel sounds, soft, non tender, no organomegaly, non distended , no mass, no scars Extremities: no cyanosis, no clubbing Skin: no rash, no lesions, no ulcers Neurologic/Psychiatric: alert, oriented x 3, responsive Lymphatic: no neck adenopathy, no groin adenopathy Musculoskeletal: normal muscle bulk, no effusion Microbiology Date/Time Source Procedure Growth Status 11/23/18 15:10 Urine,Clean Catch Urine Culture - Final Escherichia Coli Complete Current Medications Medications (Trade) Dose Ordered Sig/Mackenzie Route PRN Reason Start Time Stop Time Status Last Admin Dose Admin Acetaminophen (Tylenol) 650 mg Q4H PRN ORAL Mild Pain/Temp > 100.5 11/23/18 22:30 12/23/18 22:29 11/24/18 20:21 Cefepime HCl 2 gm/ Dextrose 55 ml @ 110 mls/hr EVERY 12 HOURS IVPB 11/23/18 21:00 11/30/18 20:59 11/25/18 10:02 Dextrose/Sodium Chloride 1,000 ml @ 70 mls/hr [id number] IV 11/23/18 22:30 12/23/18 22:29 11/25/18 10:02 Enoxaparin Sodium (Lovenox) 40 mg DAILY SUBQ 11/24/18 09:00 12/24/18 08:59 11/24/18 09:09 Famotidine (Pepcid I.v.) 20 mg BID IVP 11/23/18 23:00 12/23/18 22:59 11/25/18 10:03 Iopamidol (Isovue-300 100ml) 100 ml NOW PRN INJ Radiology Procedure 11/23/18 16:15 11/25/18 16:14 Ketorolac Tromethamine (Toradol 30mg) 30 mg Q12HR PRN IV Moderate Pain (Pain Scale 4-6) 11/23/18 22:30 11/28/18 22:29 Morphine Sulfate (Morphine Sulfate) 3 mg Q4H PRN IVP Severe Pain (Pain Scale 7-10) 11/23/18 22:30 11/30/18 22:29 Jordan Aggarwal M.D. Nov 25, 2018 14:15
[2018-11-25] MEDS ORDERED: CEPHALEXIN500 MG ORAL (15:17)
[2018-11-25] MEDS ORDERED: D5NS 1000ml IV ONE (15:29)
--- NOTE | 2018-11-25 15:39 | NUR ---
NURSE NOTES: Patient discharged Home via ambulance. Patient given prescription. Discharge instructions given to patient. IV removed. Patient stable upon discharge. Patient accompanied to lobby by RN.
--- NOTE | 2018-11-26 22:55 | Discharge Summary ---
Discharge Summary Discharge Summary _ DATE OF ADMISSION: 11/23/2018 DATE OF DISCHARGE: 11/25/2018 DISCHARGED BY: Dr. Anaya Oscar CONSULTANTS: Dr. Jordan Matamoros BRIEF HOSPITAL COURSE: Patient is a 23-year-old female, with unremarkable medical history. Patient presented to ED with complaints of fever and diffuse pain in the body. She complained of 2 days of bilateral flank pain with urinary frequency and fever. She also reported chills and generalized body aches. She denied any upper respiratory infection symptoms. She denied diarrhea, chest pain, palpitation, shortness of breath, and hematuria. Her last menstrual period was 2 weeks ago and had irregular menses. Patient has not taken any medications other than Tylenol. Pain was 5 out of 10 in bilateral flank radiating to the pubic area. She denied nausea and vomiting. Denied any recent travel. Denied vaginal discharge. On evaluation at the ED, she was found to be febrile with temperature of 102 .2 F. Blood pressure was stable although heart rate was elevated to 128. Blood work showed WBC count of 15.7. Hemoglobin and hematocrit were stable. Sodium was 135. Potassium 3.6. Kidney function was normal. Glucose 126. LFTs normal. Urinalysis revealed positive nitrite, +3 leukocyte esterase, 5-10 urine RBC and 10-15 urine WBC. Chest x-ray did not show any acute disease. CT of the abdomen and pelvis with contrast showed mild thickening of the wall of the urinary bladder. Suspect cystitis and pyelitis with possible pyelonephritis. She was then admitted for evaluation of pyelonephritis. She was admitted to medical floor. She was given IV hydration and pain management. She was given GI protectant. She was placed on Lovenox for DVT prophylaxis. Infectious disease specialist was consulted. Blood culture was sent. Patient was started empirically on cefepime pending culture results. She had elevated glucose level. Hemoglobin A1c was 5.5. Urologist was consulted. Physical examination revealed left CVA tenderness with epigastric tenderness. He agreed with antibiotic treatment. Patient eventually defervesced. Urine culture showed growth of E. coli. Antibiotic was switched to oral Keflex. Advised to continue for 2 weeks total course. She was eventually discharged home. FINAL DIAGNOSES: Sepsis due to acute pyelonephritis due to E. coli Hyponatremia Abnormal blood glucose Fever Abdominal pain DISPOSITION: DC home. DISCHARGE MEDICATIONS: Refer to Discharge Medication List. DISCHARGE INSTRUCTIONS: Follow-up in a week. I have been assigned to complete a discharge summary on this account, I was not involved with the patient's management.--CODEY Wong Jacqueline Robles NP Nov 26, 2018 22:55
--- NOTE | 2018-11-28 19:58 | Cardiology Report ---
APPROVED REPORT EKG Measurement Heart [id number] Sinus tachycardia Otherwise normal ECG
== END 2018-11-25 15:30 | disposition home or self-care (01) | DRG 720 ==
LOC: EMR 15:24 → 4E 18:04 → EDBEDREQ 19:21 → 4E 19:57
DX: A41.9 Sepsis, unspecified organism (principal); N39.0 Urinary tract infection, site not specified; N10 Acute pyelonephritis; E87.1 Hypo-osmolality and hyponatremia; B96.20 Unspecified Escherichia coli [E. coli] as the cause of diseases classified elsewhere; R73.09 Other abnormal glucose; R10.9 Unspecified abdominal pain
CPT/HCPCS: 36415; 71045; 74177; 76700; 80053; 80061; 81001; 81025; 83036; 84443; 85007; 85025; 85610; 85730; 86850; 86900; 86901; 87086; 87181; 93005; 96361; 96365; 96367; 96372; 96375; 99284